=== PATIENT | male | born 1955 | race Caucasian/White ===

== ENCOUNTER 2023-03-25 17:21 | Inpatient (IN) | payer MEDICARE, BC, SELFPAY ==
[2023-03-25] VITALS (7 sets, daily range): BP systolic 134–167; BP diastolic 79–90; PULSE 56–82; RESP 12–21; TEMP 36.4–36.8; O2SAT 96–99; BMI 25.5; BMI 25.0
--- NOTE | 2023-03-25 18:41 | EX.ED.DYSGE1 ---
HPI <DEEPTI Ríos - Last Filed: 03/25/23 20:33> History of Present Illness Chief Complaint: Substance Abuse Narrative Narrative: Patient presenting requesting detox from alcohol. He reports that he drinks about a sixpack daily and his reports that he has been drinking for 45 years every day. He has tried to detox in the past by himself but was unsuccessful. He has never been to an inpatient detox center. He denies any history of withdrawal seizures. He denies any other substance use. PMH includes hypertension, CAD with stent placement, hyperlipidemia. He reports that his PCP did put him on disulfiram but he has had no success with that. PFSH <DEEPTI Ríos - Last Filed: 03/25/23 20:33> [facility] Medical History (Updated 03/25/23 @ 20:[address] Aldo Raines MD) CAD (coronary artery disease) GERD (gastroesophageal reflux disease) Hypercholesteremia Hypertension STEMI (ST elevation myocardial infarction) Home Medications aspirin 81 mg capsule 81 mg PO DAILY 03/25/23 [History Last Taken Unknown] atorvastatin 40 mg tablet 40 mg PO QHS 03/25/23 [History Last Taken Unknown] clopidogrel 75 mg tablet 75 mg PO DAILY 03/25/23 [History Last Taken Unknown] disulfiram 250 mg tablet 250 mg PO DAILY 03/25/23 [History Last Taken Unknown] escitalopram oxalate 5 mg tablet 5 mg PO QHS 03/25/23 [History Last Taken Unknown] folic acid 1 mg tablet 1 mg PO DAILY 03/25/23 [History Last Taken Unknown] losartan 25 mg tablet 50 mg PO DAILY 03/25/23 [History Last Taken Unknown] metoprolol tartrate 25 mg tablet 25 mg PO BID 03/25/23 [History Last Taken Unknown] multivitamin (Daily Multi-Vitamin tablet) 1 tab PO DAILY 03/25/23 [History Last Taken Unknown] nitroglycerin 0.4 mg sublingual tablet 0.4 mg sublingual Q5M PRN chest pain 03/25/23 [History Last Taken Unknown] omega-3 fatty acids-fish oil 300 mg-500 mg capsule (Fish Oil) 1 cap PO DAILY 03/25/23 [History Last Taken Unknown] omeprazole 40 mg capsule,delayed release 40 mg PO DAILY 03/25/23 [History Last Taken Unknown] Allergy/AdvReac Type Severity Reaction Status Date / Time No Known Allergies Allergy Verified 03/25/23 19:27 Family History (Updated 03/25/23 @ 20:[address] Aldo Raines MD) Other Heart disease Surgical History (Updated 03/25/23 @ 20:[address] Aldo Raines MD) H/O eye surgery History of appendectomy History of cataract surgery History of coronary artery stent placement Social History Smoking Status: Never smoker ROS <DEEPTI Ríos - Last Filed: 03/25/23 20:33> ROS ED Constitutional Constitutional ED: Denies chills or fever(s) Cardiovascular Cardiovascular: Denies chest pain Respiratory/Chest Respiratory/Chest: Denies cough or dyspnea Gastrointestinal Gastrointestinal: Denies abdominal pain, nausea or vomiting Musculoskeletal Musculoskeletal: Denies arthralgias or myalgias Neurologic Neurologic: Denies weakness EXAM <DEEPTI Ríos - Last Filed: 03/25/23 20:33> Physical Exam Const Vital Signs: 03/25/23 17:22 03/25/23 20:11 Temperature 97.5 F L 98.3 F Temperature Source Temporal Oral Pulse Rate 71 82 Respiratory Rate 16 12 Blood Pressure 167/90 H 143/84 H Blood Pressure Mean 115 103 Blood Pressure Source Monitor Blood Pressure Position Semi-Fowlers Blood Pressure Location Left Arm Pulse Ox 98 97 Oxygen Delivery Method Room Air Room Air Positive well nourished, well developed and no apparent distress General Appearance ED: well developed HEENT Reports normocephalic and head/scalp atraumatic Mouth ED: Yes moist mucous membranes normal Eyes PERRL and EOMs intact bilaterally Neck full ROM and supple Chest Wall inspection of chest normal Resp normal respiratory effort and clear to auscultation bilaterally Cardio regular rate and regular rhythm GI soft to palpation, non-tender, non-distended and no masses Back/Spine normal ROM and normal to inspection Extremity normal to inspection and full ROM Neuro oriented x3, CN's II-XII intact bilaterally, moves all extremities, no focal motor deficits and no sensory deficits noted Sensorium / Orientation: awake and alert Psych mental status grossly normal and thought process normal Skin no rashes or lesions noted and no wounds <Dr. Javy Leon DO - Last Filed: 03/25/23 22:00> Physical Exam Const Vital Signs: 03/25/23 17:22 03/25/23 20:11 Temperature 97.5 F L 98.3 F Temperature Source Temporal Oral Pulse Rate 71 82 Respiratory Rate 16 12 Blood Pressure 167/90 H 143/84 H Blood Pressure Mean 115 103 Blood Pressure Source Monitor Blood Pressure Position Semi-Fowlers Blood Pressure Location Left Arm Pulse Ox 98 97 Oxygen Delivery Method Room Air Room Air MDM <DEEPTI Ríos - Last Filed: 03/25/23 20:33> MDM MDM Narrative Medical decision making narrative: Patient presenting requesting alcohol detox, his last drink was yesterday evening, he does not feel that he is in withdrawal at this time. Vitals are unremarkable aside from being hypertensive. He is well-appearing and in no acute distress. Clearance labs will be obtained and I will speak with the hospitalist. He will be admitted in stable condition. Labs are unremarkable. Lab Data Attestation: I reviewed the patient's lab results. Labs: Laboratory Results - last 24 hr 03/25/23 03/25/23 19:25 19:36 WBC 7.3 RBC 4.27 L Hgb 12.8 L Hct 38.9 L MCV 91.1 MCH 30.0 MCHC 32.9 RDW Std Deviation 42.5 RDW Coeff of [place] 12.9 Plt Count 249 MPV 10.3 Immature Gran % (Auto) 0.300 Neut % (Auto) 65.2 Lymph % (Auto) 24.4 [place] % (Auto) 8.5 Eos % (Auto) 0.8 Baso % (Auto) 0.8 Absolute Neuts (auto) 4.7 Absolute Lymphs (auto) 1.77 Nucleated RBC % 0 Sodium 138 Potassium 4.0 Chloride 106 Carbon Dioxide 25.0 Anion Gap 7 BUN 10 Creatinine 1.03 Estim Creat Clear Calc 67.33 Est GFR (MDRD) Af Amer 92 Est GFR (MDRD) Non-Af 76 BUN/Creatinine Ratio 9.7 L Glucose 86 Calcium 8.9 Total Bilirubin 0.80 AST 26 ALT 25 Alkaline Phosphatase 91 Total Protein 7.2 Albumin 3.5 Globulin 3.7 Albumin/Globulin Ratio 0.9 Urine Opiates Screen NEGATIVE Urine Methadone Screen NEGATIVE Ur Barbiturates Screen NEGATIVE Ur Phencyclidine Scrn NEGATIVE Ur Amphetamines Screen NEGATIVE MDMA (Ecstasy) Screen NEGATIVE U Benzodiazepines Scrn NEGATIVE Urine Cocaine Screen NEGATIVE U Cannabinoids Screen NEGATIVE Ur Drug Screen Comment Ethyl Alcohol < 3.0 <Dr. Javy Leon, DO - Last Filed: 03/25/23 22:00> [facility] Lab Data Labs: Laboratory Results - last 24 hr 03/25/23 03/25/23 19:25 19:36 WBC 7.3 RBC 4.27 L Hgb 12.8 L Hct 38.9 L MCV 91.1 MCH 30.0 MCHC 32.9 RDW Std Deviation 42.5 RDW Coeff of [place] 12.9 Plt Count 249 MPV 10.3 Immature Gran % (Auto) 0.300 Neut % (Auto) 65.2 Lymph % (Auto) 24.4 [place] % (Auto) 8.5 Eos % (Auto) 0.8 Baso % (Auto) 0.8 Absolute Neuts (auto) 4.7 Absolute Lymphs (auto) 1.77 Nucleated RBC % 0 Sodium 138 Potassium 4.0 Chloride 106 Carbon Dioxide 25.0 Anion Gap 7 BUN 10 Creatinine 1.03 Estim Creat Clear Calc 67.33 Est GFR (MDRD) Af Amer 92 Est GFR (MDRD) Non-Af 76 BUN/Creatinine Ratio 9.7 L Glucose 86 Calcium 8.9 Total Bilirubin 0.80 AST 26 ALT 25 Alkaline Phosphatase 91 Total Protein 7.2 Albumin 3.5 Globulin 3.7 Albumin/Globulin Ratio 0.9 Urine Opiates Screen NEGATIVE Urine Methadone Screen NEGATIVE Ur Barbiturates Screen NEGATIVE Ur Phencyclidine Scrn NEGATIVE Ur Amphetamines Screen NEGATIVE MDMA (Ecstasy) Screen NEGATIVE U Benzodiazepines Scrn NEGATIVE Urine Cocaine Screen NEGATIVE U Cannabinoids Screen NEGATIVE Ur Drug Screen Comment Ethyl Alcohol < 3.0 Treatment and Re-Evaluation :: ED attending note: I evaluated the patient in conjunction with the BRIAN. I agree with his/her statements and above findings. I have personally performed a face to face assessment of the patient and have reviewed the BRIAN Note. I performed a substantive portion of the visit including all aspects of the following. I personally saw the patient performed chart review, physical exam, reviewed labs, imaging (if obtained), and formulated a treatment and management plan. Brief history: 67-year-old male here with alcohol abuse and request for alcohol detox. States he drinks approximate 6 beers a day. Last drink was approximate 24 hours ago. Denies any other drug use. Exam: Nursing triage notes reviewed, Vital signs reviewed Constitutional: please see mdm HENT: MMM, bruising noted to right jaw. Eyes: Pupils equal round and reactive to light, Extraocular muscles intact Neck: No stridor, no JVD, full neck ROM Lungs: Clear to auscultation, No wheezing or rales. No increased work of breathing, no conversational dyspnea, no accessory muscle use, no nasal flaring. No respiratory distress noted Heart: Regular rate and rhythm, No murmurs, No rubs and No gallops, 2+ distal pulses (radial, femoral, posterior tibial) in all extremities Abdomen: Soft, there is no tenderness, rigidity, rebound or guarding, no obvious peritoneal signs, no palpable pulsatile abdominal masses, no auscultated abdominal bruit : No CVAT Extremities: No edema Neuro: No focal neurological deficits, cranial nerves II through XII intact, 5/5 strength in all extremities. Intact sensation to light touch in all extremities, 2+ reflexes bilateral patella dens. Normal gait. No ataxia. Skin: No rash or lesions noted MDM/plan: Chief Complaint: Alcohol abuse External records reviewed: No recent ED visits or hospitalizations Factors affecting care: History of alcohol abuse Social determinants of health: Alcohol abuse History obtained from others: The patient's MDM narrative: Patient was hemodynamically stable, afebrile, nontoxic-appearing. Exam without focal abnormality. We will obtain medical clearance labs and attempt admit through our detox process. Consults: Internal medicine Shared decision making: I will have a discussion with the patient and or visitors regarding risk/benefits of further testing or admission. They will be made aware of of the risk/benefits inherent in this decision they will be given the opportunity to voice understanding. Discharge Plan Dx/Rx/DC Orders Clinical Impression: Desire for detoxification, Alcohol abuse Disposition Disposition: Acute Care [facility]
[2023-03-25 19:41] LABS: Absolute Lymphocyte Count 1.77 X10^3/uL (0.83-4.51); Absolute Neutrophil Count 4.7 X10^3/uL (2.0-7.7); Basophil# 0.06 X10^3/uL; Basophil% 0.8 % (0-1); Eosinophil# 0.06 X10^3/uL; Eosinophils% 0.8 % (0-5); Hematocrit 38.9 % (40-54); Hemoglobin 12.8 g/dL (13.0-16.5); Lymphocyte # 1.77 X10^3/ul (0.83-4.51); Lymphocyte % 24.4 % (19-41); Mean Corp Hgb Conc 32.9 g/dL (32-36); Mean Corpuscular Volume 91.1 fL (80-94); Mean Platelet Vol. 10.3 fl (6.2-12.0); Monocyte# 0.62 X10^3/uL; Monocyte% 8.5 % (0-10); NRBC Flagged by Analyzer 0 % (0-5); Neutrophil # 4.73 X10^3/uL (2.7-7.7); Neutrophil % 65.2 % (47-70); Platelet Count 249 K/mm3 (150-450); RBC Distribution Width CV 12.9 % (11.6-14.6); RBC Distribution Width SD 42.5 fl (35.1-43.9); Red Blood Count 4.27 M/mm3 (4.6-6.2); White Blood Count 7.3 K/mm3 (4.4-11.0)
[2023-03-25 19:47] LABS: Alcohol, Blood (Medical)-Serum < 3.0 mg/dL
[2023-03-25 19:51] LABS: ALB/GLOB Ratio 0.9 RATIO (0.9-2.4); AST(SGOT) 26 U/L (15-37); Alanine Aminotransfer ALT/SGPT 25 U/L (16-61); Albumin, Serum 3.5 g/dL (3.2-5.0); Alkaline Phosphatase 91 U/L (45-117); Anion Gap 7 (5-15); BUN 10 mg/dL (7-18); BUN/Creat Ratio 9.7 RATIO (10-20); Calcium,Total 8.9 mg/dL (8.5-10.1); Chloride 106 mmol/L (98-107); Creatinine, Serum 1.03 mg/dL (0.70-1.30); EST Glomerular Filtration Rate 76 mL/min (>60); Est Glom Filt Rate - Afr Amer 92 mL/min (>60); Estimated Creatinine Clearance 67.33 ml/min; Globulin 3.7 g/dL (2.2-4.2); Glucose 86 mg/dL (74-106); Protein, Total 7.2 g/dL (6.4-8.2); Sodium Level 138 mmol/L (136-145)
[2023-03-25 20:07] LABS: Amphetamine Urine VISTA NEGATIVE (<1000 ng/mL); Barbiturate Urine VISTA NEGATIVE (< 200 ng/mL); Benzodiazepine Urine VISTA NEGATIVE (< 200 ng/mL); Cocaine Urine VISTA NEGATIVE (< 300 ng/mL); Ecstacy Urine VISTA NEGATIVE (< 500 ng/mL); Methadone Urine VISTA NEGATIVE (< 300 ng/mL); PCP Urine VISTA NEGATIVE (< 25 ng/mL); THC Urine VISTA NEGATIVE (< 50 ng/mL); Vista UDS pH Range 5
--- NOTE | 2023-03-25 20:10 | ED.RN ---
PT HAS BRUISING TO RIGHT JAW. PT STATES A BRANCH HIT ME WHEN I WAS WORKING IN THE YARD. PT ALSO COMPLAINS OF MINOR NECK PAIN/SORENESS.
--- NOTE | 2023-03-25 20:35 | HP.PCM.HOS_ITS ---
HPI - General General Date of Admission: 03/25/23 Date of Service: 03/25/23 Chief Complaint: Desire for alcohol detox HPI Narrative LISBET BLANCO, is a 67 M significant history of depression; CAD status post stent in LAD in January 2022; and alcoholism who presents emergency department for help with alcohol detox . Of note patient has been drinking for about 45 years. He report that he drinks 4-6 bottles of 8 ounce; 16 ounces or 25 pounds beer. Last time he drank was a day before presentation. He denies any withdrawal symptoms. He reports that about 2 weeks ago ago his PCP started him on a medication for alcohol withdrawal. He reported that medications is not helping him. [facility] Medical History (Updated 03/26/23 @ 01:[address] Aldo Raines MD) CAD (coronary artery disease) GERD (gastroesophageal reflux disease) Hypercholesteremia Hypertension STEMI (ST elevation myocardial infarction) Home Medications aspirin 81 mg capsule 81 mg PO DAILY blood thinner 03/25/23 [History Last Taken 03/24/23] atorvastatin 40 mg tablet 40 mg PO QHS hld 03/25/23 [History Last Taken 03/24/23] clopidogrel 75 mg tablet 75 mg PO DAILY blood thinner 03/25/23 [History Last Taken 03/25/23] disulfiram 250 mg tablet 250 mg PO DAILY see 03/25/23 [History Last Taken 03/25/23] docsshexaenoic acid 120 - 180 mg PO DAILY see 03/25/23 [History Last Taken 03/25/23] escitalopram oxalate 5 mg tablet 5 mg PO QHS depression 03/25/23 [History Last Taken 03/24/23] folic acid 1 mg tablet 1 mg PO DAILY vitamin 03/25/23 [History Last Taken 0 03/24/23] losartan 25 mg tablet 50 mg PO DAILY bp 03/25/23 [History Last Taken 03/25/23] metoprolol tartrate 25 mg tablet 25 mg PO BID heart 03/25/23 [History Last Taken 03/25/23] multivitamin (Daily Multi-Vitamin tablet) 1 tab PO DAILY vitamin 03/25/23 [History Last Taken 03/25/23] nitroglycerin 0.4 mg sublingual tablet 0.4 mg sublingual Q5M PRN chest pain 03/25/23 [History Last Taken Unknown] omega-3 fatty acids-fish oil 300 mg-500 mg capsule (Fish Oil) 1 cap PO DAILY vitamin 03/25/23 [History Last Taken 03/25/23] omeprazole 40 mg capsule,delayed release 40 mg PO DAILY stomach 03/25/23 [Histo ry Last Taken 03/25/23] Allergy/AdvReac Type Severity Reaction Status Date / Time No Known Allergies Allergy Verified 03/25/23 19:27 Family History Other Heart disease Surgical History H/O eye surgery History of appendectomy History of cataract surgery History of coronary artery stent placement Social History Smoking Status: Never smoker ROS ROS Narrative Pertinent positives and pertinent negatives as noted in HPI. All other systems were reviewed and are negative Vital Signs Vital Signs Vital Signs: 03/25/23 17:22 03/25/23 20:11 Temperature 97.5 F L 98.3 F Temperature Source Temporal Oral Pulse Rate 71 82 Respiratory Rate 16 12 Blood Pressure 167/90 H 143/84 H Blood Pressure Mean 115 103 Blood Pressure Source Monitor Blood Pressure Position Semi-Fowlers Blood Pressure Location Left Arm Pulse Ox 98 97 Oxygen Delivery Method Room Air Room Air Weight Weight: 76.204 kg Body Mass Index (BMI) 25.5 Physical Exam Narrative Physical exam: General: Well-nourished, well-developed. Head: Normocephalic, atraumatic, no tenderness Eyes: Vision is grossly intact. EOMI ENT, no trauma, moist mucous membranes, no rhinorrhea Neck: Nontender, No thyromegaly. CVS: Regular rate and rhythm. S1-S2 present. No murmur, gallop or rub. Respiratory : clear to auscultation bilaterally, chest wall nontender Abdomen: Soft, nontender, nondistended, normal bowel sounds, no masses : Deferred Back: Nontender, no CVA tenderness. Extremities: Nontender full range of motion, no trauma Skin: Normal color, no trauma, abrasions Neuro: Alert, oriented, cranial nerves II through XII grossly intact. Psychiatry: Normal mood. Normal affect. Not depressed. Not anxious. Results Lab / Micro Data 03/25/23 19:25 03/25/23 19:25 Labs: Laboratory Results - last 24 hr 03/25/23 19:25: WBC 7.3, RBC 4.27 L, Hgb 12.8 L, Hct 38.9 L, MCV 91.1, MCH 30.0, MCHC 32.9, RDW Std Deviation 42.5, RDW Coeff of [place]innette 12.9, Plt Count 249, MPV 10.3, Immature Gran % (Auto) 0.300, Neut % (Auto) 65.2, Lymph % (Auto) 24.4, [place] % (Auto) 8.5, Eos % (Auto) 0.8, Baso % (Auto) 0.8, Absolute Neuts (auto) 4.7, Absolute Lymphs (auto) 1.77, Nucleated RBC % 0, Sodium 138, Potassium 4.0, Chloride 106, Carbon Dioxide 25.0, Anion Gap 7, BUN 10, Creatinine 1.03, Estim Creat Clear Calc 67.33, Est GFR (MDRD) Af Amer 92, Est GFR (MDRD) Non-Af 76, BUN/Creatinine Ratio 9.7 L, Glucose 86, Calcium 8.9, Total Bilirubin 0.80, AST 26, ALT 25, Alkaline Phosphatase 91, Total Protein 7.2, Albumin 3.5, Globulin 3.7, Albumin/Globulin Ratio 0.9, Ethyl Alcohol < 3.0 03/25/23 19:36: Urine Opiates Screen NEGATIVE, Urine Methadone Screen NEGATIVE, Ur Barbiturates Screen NEGATIVE, Ur Phencyclidine Scrn NEGATIVE, Ur Amphetamines Screen NEGATIVE, MDMA (Ecstasy) Screen NEGATIVE, U Benzodiazepines Scrn NEGATIVE, Urine Cocaine Screen NEGATIVE, U Cannabinoids Screen NEGATIVE, Ur Drug Screen Comment Assessment & Plan Assessment/Plan (1) Alcohol abuse: (2) Hypertension: QUALIFIERS: Hypertension type: primary hypertension Qualified Code(s): I10 - Essential (primary) hypertension (3) Desire for detoxification: PLAN: Plan Alcohol dependence and desire for detoxification Patient be started on phenobarbital and other adjunctive medications: Gabapentin as needed; dicyclomine as needed; Vistaril as needed; Imodium as needed; trazodone as needed; Zofran as needed; scheduled thiamine; and schedule folic acid. Hold home disulfiram Monitor CIWA score CAD status post stent Stable Dual antiplatelet therapy continued. Metoprolol and losartan continued. Hypertension Blood pressure is not within goal Home blood pressure medication continued. A Trend blood pressure and adjust blood pressure medications. DVT prophylaxis Subcutaneous Lovenox ordered Time spent in the patient's overall evaluation,decision-making process, review of diagnostic data, adjustment of management, discussion with other providers, nursing nursing and ancillary staff involved in patient's care documentation, 60 minutes. Charges/Coding Visit Charges Inpatient E&M: 16505 Init Hosp L3
--- NOTE | 2023-03-25 21:07 | CM.ED ---
Social Work SW introduced self and role to patient. Pt reports he doesn't know what detox is. SW answered questions as able. Pt reports his last drink was yesterday evening. Pt reports drinking 4-6 cans of beer a day on average. Pt denies ever being in counseling or substance abuse treatment. Pt denies any further SW needs at this time. Naina Santana COPPER FLOTATION OPERATOR, HOME WEATHERIZING WORKER
[2023-03-25] MEDS: traZODone 100 MG Tablet PO (22:54)
[2023-03-25] MEDS: Atorvastatin Calcium 40 MG Tablet PO (22:54)
[2023-03-25] MEDS: Phenobarbital 32.4 MG Tablet 64.8 MG PO (22:55)
[2023-03-25] MEDS: Escitalopram Oxalate 10 MG Tablet 5 MG PO (22:55)
[2023-03-26] VITALS (8 sets, daily range): BP systolic 120–136; BP diastolic 73–88; PULSE 71–92; RESP 16–18; TEMP 36.6–37.1; O2SAT 94–98
[2023-03-26] MEDS: Phenobarbital 32.4 MG Tablet 64.8 MG PO ×6 (02:23→22:21)
--- NOTE | 2023-03-26 07:39 | PN.HOSP_ITS ---
Reason for Visit Reason for Visit: Diagnoses Alcohol abuse, uncomplicated (03/25/23) Essential (primary) hypertension (03/25/23) Subjective Subjective Patient started on disulfiram a week ago but was significant for vomiting. Was having mucus otherwise was able to tolerate alcohol. Has never been on it prior to this past week or so. Objective Data Objective Data Vital Signs: Vital Signs Temp Pulse Resp BP Pulse Ox O2 Del Method 36.8 C 71 16 133/73 H 94 Room Air 03/26/23 02:27 03/26/23 02:27 03/26/23 02:27 03/26/23 02:27 03/26/23 02:27 03/26/23 02:27 Oxygen Delivery Method Room Air Weight: 74.6 kg Body Mass Index (BMI) 25.0 Intake & Output: Intake and Output for Last 24 Hours 03/24/23 03/25/23 03/26/23 23:59 23:59 23:59 Intake Total 240 / 240 240 / 240 Balance 240 / 240 240 / 240 Lab / Micro Data 03/25/23 19:25 03/25/23 19:25 Labs: Laboratory Results - last 24 hr 03/25/23 19:25: WBC 7.3, RBC 4.27 L, Hgb 12.8 L, Hct 38.9 L, MCV 91.1, MCH 30.0, MCHC 32.9, RDW Std Deviation 42.5, RDW Coeff of [place]ette 12.9, Plt Count 249, MPV 10.3, Immature Gran % (Auto) 0.300, Neut % (Auto) 65.2, Lymph % (Auto) 24.4, [place] % (Auto) 8.5, Eos % (Auto) 0.8, Baso % (Auto) 0.8, Absolute Neuts (auto) 4.7, Absolute Lymphs (auto) 1.77, Nucleated RBC % 0, Sodium 138, Potassium 4.0, Chloride 106, Carbon Dioxide 25.0, Anion Gap 7, BUN 10, Creatinine 1.03, Estim Creat Clear Calc 67.33, Est GFR (MDRD) Af Amer 92, Est GFR (MDRD) Non-Af 76, BUN/Creatinine Ratio 9.7 L, Glucose 86, Calcium 8.9, Total Bilirubin 0.80, AST 26, ALT 25, Alkaline Phosphatase 91, Total Protein 7.2, Albumin 3.5, Globulin 3.7, Albumin/Globulin Ratio 0.9, Ethyl Alcohol < 3.0 03/25/23 19:36: Urine Opiates Screen NEGATIVE, Urine Methadone Screen NEGATIVE, Ur Barbiturates Screen NEGATIVE, Ur Phencyclidine Scrn NEGATIVE, Ur Amphetamines Screen NEGATIVE, MDMA (Ecstasy) Screen NEGATIVE, U Benzodiazepines Scrn NEGATIVE, Urine Cocaine Screen NEGATIVE, U Cannabinoids Screen NEGATIVE, Ur Drug Screen Comment Physical Exam Const alert and no apparent distress GI normal to inspection, nondistended, normoactive bowel sounds Extremity normal to inspection and full ROM Assessment & Plan Assessment/Plan (1) Alcohol abuse: PLAN: Alcohol dependence and desire for detoxification Patient be started on phenobarbital and other adjunctive medications: Gabapentin as needed; dicyclomine as needed; Vistaril as needed; Imodium as needed; trazodone as needed; Zofran as needed; scheduled thiamine; and schedule folic acid. Hold home disulfiram Monitor CIWA score Patient with benign disulfiram for about a week. Patient to continue with. Patient will benefit from Vivtrol upon discharge. Pt to follow up with [facility] upon discharge. Please monitor the patient overnight insignificance remained stable or improved, plan to be discharged, give him Vivitrol and then have him follow-up PLAN: Plan Chronic conditions: * CAD status post stent: Dual antiplatelet therapy continued. Metoprolol and losartan continued. * Hypertension: continue losartan, metoprolol VTE prophylaxis: LMWH Charges/Coding Visit Charges Inpatient E&M: 69486 [facility] Hosp L1
[2023-03-26] MEDS: Aspirin 81 MG TAB.CHEW PO (09:17)
[2023-03-26] MEDS: Thiamine Hydrochloride 100 MG Tablet PO (09:17)
[2023-03-26] MEDS: Losartan Potassium 50 MG Tablet PO (09:17)
[2023-03-26] MEDS: Pantoprazole Sodium 40 MG Tablet PO (09:17)
[2023-03-26] MEDS: Metoprolol Tartrate 25 MG Tablet PO ×2 (09:17→22:20)
[2023-03-26] MEDS: Multivitamins,Therapeutic Tablet 1 TABLET PO (09:17)
[2023-03-26] MEDS: Clopidogrel Bisulfate 75 MG Tablet PO (09:18)
[2023-03-26] MEDS: Enoxaparin 40 MG/0.4 ML Syringe SC (09:18)
[2023-03-26] MEDS: Folic Acid 1 MG Tablet PO (09:18)
--- NOTE | 2023-03-26 11:22 | ADDICTION ---
This senior technical writer met with PT to conduct ASAM, MSE, AUDIT assessments and to plan for d/c. PT A+Ox4 and participated actively. All assessments completed in PT's chart. PT plans to f/u with [facility] in [place] for follow-up assessment and counseling services. PT did not indicate a need for transportation post d/c from [facility].
--- NOTE | 2023-03-26 12:06 | ADDICTION ---
Addendum entered by Sanjana Dozier 03/26/23 12:09: Dr. Reese was informed of Vivitrol referral. Original Note: Pt has requested the Vivitrol shot. Pt completed assessment and is appropriate for his first injection through [facility]. PT plans to f/u with [facility] for outpatient treatment and Dr. Cannon, his PCP, for MAT services. Pt's will transport pt once discharged.
--- NOTE | 2023-03-26 12:10 | ADDICTION ---
Pt has requested the Vivitrol shot. Pt completed assessment and is appropriate for his first injection through [facility]. PT plans to f/u with [facility] for outpatient treatment and Dr. Cannon, his PCP, for MAT services. Pt's will transport pt once discharged. Attempted to call to inform her of the plan, left voicemail. Pt reported that will make appointments for [facility] and Dr. Cannon. Dr. Reese was informed of plan for Vivitrol.
[2023-03-26] MEDS: hydrOXYzine PAM 25 MG Capsule 50 MG PO ×2 (13:33→18:20)
[2023-03-26] MEDS: Gabapentin 300 MG Capsule PO (16:38)
[2023-03-26] MEDS: traZODone 100 MG Tablet PO (22:20)
[2023-03-26] MEDS: Escitalopram Oxalate 10 MG Tablet 5 MG PO (22:21)
[2023-03-26] MEDS: Atorvastatin Calcium 40 MG Tablet PO (22:21)
[2023-03-27 02:36] VITALS: BP 119/77; PULSE 63; RESP 18; TEMP 36.6; O2SAT 95
[2023-03-27] MEDS: Phenobarbital 32.4 MG Tablet 64.8 MG PO ×3 (02:40→10:52)
[2023-03-27 08:29] VITALS: BP 134/79; PULSE 80; RESP 16; TEMP 36.3; O2SAT 97
--- NOTE | 2023-03-27 08:34 | PCM.PN.HOSP ---
Reason for Visit Reason for Visit: Diagnoses Alcohol abuse, uncomplicated (03/25/23) Essential (primary) hypertension (03/25/23) Subjective Subjective Has been walking around w/o difficulty. Slightly off balance when he gets up. Objective Data Objective Data Vital Signs: Vital Signs Temp Pulse Resp BP Pulse Ox O2 Del Method 36.6 C 63 18 119/77 95 Room Air 03/27/23 02:36 03/27/23 02:36 03/27/23 02:36 03/27/23 02:36 03/27/23 02:36 03/27/23 02:36 Oxygen Delivery Method Room Air Weight: 74.6 kg Body Mass Index (BMI) 25.0 Intake & Output: Intake and Output for Last 24 Hours 03/25/23 03/26/23 03/27/23 23:59 23:59 23:59 Intake Total 240 / 240 240 / 240 Balance 240 / 240 240 / 240 Lab / Micro Data 03/25/23 19:25 03/25/23 19:25 Physical Exam Const alert and no apparent distress HEENT head/scalp atraumatic and moist oral mucous membranes Psych affect normal Assessment & Plan Assessment/Plan (1) Alcohol abuse: PLAN: Alcohol dependence and desire for detoxification Patient be started on phenobarbital and other adjunctive medications: Gabapentin as needed; dicyclomine as needed; Vistaril as needed; Imodium as needed; trazodone as needed; Zofran as needed; scheduled thiamine; and schedule folic acid. Hold home disulfiram Monitor CIWA score Patient with benign disulfiram for about a week. Patient to continue with. Patient will benefit from Vivtrol upon discharge. Pt to follow up with [facility] upon discharge. Please monitor the patient overnight insignificance remained stable or improved, plan to be discharged, give him Vivitrol and then have him follow-up Will give dose of Vivitrol. Patient will follow up with [facility] for ongoing addiction treatment upon discharge. PLAN: Plan Chronic conditions: CAD status post stent: Dual antiplatelet therapy continued. Metoprolol and losartan continued. Hypertension: continue losartan, metoprolol
[2023-03-27 08:51] VITALS: BP 134/79; PULSE 74; RESP 18; TEMP 36.3; O2SAT 95
[2023-03-27] MEDS: Folic Acid 1 MG Tablet PO (08:59)
[2023-03-27] MEDS: Aspirin 81 MG TAB.CHEW PO (08:59)
[2023-03-27 09:00] VITALS: PULSE 74
[2023-03-27] MEDS: Multivitamins,Therapeutic Tablet 1 TABLET PO (09:00)
[2023-03-27] MEDS: Clopidogrel Bisulfate 75 MG Tablet PO (09:00)
[2023-03-27] MEDS: Pantoprazole Sodium 40 MG Tablet PO (09:00)
[2023-03-27] MEDS: Metoprolol Tartrate 25 MG Tablet PO (09:00)
[2023-03-27] MEDS: Thiamine Hydrochloride 100 MG Tablet PO (09:00)
[2023-03-27] MEDS: Losartan Potassium 50 MG Tablet PO (09:00)
[2023-03-27] MEDS: Enoxaparin 40 MG/0.4 ML Syringe SC (09:00)
[2023-03-27 09:25] VITALS: O2SAT 95
--- NOTE | 2023-03-27 09:32 | ADDICTION ---
TW met with PT to discuss d/c and see if there were any changes. PT is interested in following up with outpatient at [facility]. TW called to ask if appts had be scheduled. stated she wanted pt to go to rehab. Pt is not interested in residential tx at this time and wants to try outpatient tx first.
--- NOTE | 2023-03-27 11:33 | PCM.DC.SUM ---
Providers Date of Admission: 03/25/23 Primary Care Physician: VALENTINA BELTRÁN MD Reason For Visit: DESIRE FOR ALCOHOL DETOXIFICATION Diagnosis Discharge Diagnosis (1) Alcohol abuse: Status: Acute Code(s): F10.10 - Alcohol abuse, uncomplicated Plan: Alcohol dependence and desire for detoxification Patient be started on phenobarbital and other adjunctive medications: Gabapentin as needed; dicyclomine as needed; Vistaril as needed; Imodium as needed; trazodone as needed; Zofran as needed; scheduled thiamine; and schedule folic acid. Hold home disulfiram Monitor CIWA score Patient with benign disulfiram for about a week. Patient to continue with. Patient will benefit from Vivtrol upon discharge. Pt to follow up with [facility] upon discharge. Please monitor the patient overnight insignificance remained stable or improved, plan to be discharged, give him Vivitrol and then have him follow-up Will give dose of Vivitrol. Patient will follow up with [facility] for ongoing addiction treatment upon discharge. Plan Chronic conditions: CAD status post stent: Dual antiplatelet therapy continued. Metoprolol and losartan continued. Hypertension: continue losartan, metoprolol Medications at Discharge Home Medications aspirin 81 mg capsule 81 mg PO DAILY blood thinner 03/25/23 atorvastatin 40 mg tablet 40 mg PO QHS hld 03/25/23 clopidogrel 75 mg tablet 75 mg PO DAILY blood thinner 03/25/23 escitalopram oxalate 5 mg tablet 5 mg PO QHS depression 03/25/23 folic acid 1 mg tablet 1 mg PO DAILY vitamin 03/25/23 losartan 25 mg tablet 50 mg PO DAILY bp 03/25/23 metoprolol tartrate 25 mg tablet 25 mg PO BID heart 03/25/23 multivitamin (Daily Multi-Vitamin tablet) 1 tab PO DAILY vitamin 03/25/23 nitroglycerin 0.4 mg sublingual tablet 0.4 mg sublingual Q5M PRN chest pain 03/25/23 omega-3 fatty acids-fish oil 300 mg-500 mg capsule (Fish Oil) 1 cap PO DAILY vitamin 03/25/23 omeprazole 40 mg capsule,delayed release 40 mg PO DAILY stomach 03/25/23 multivitamin 1 tab PO DAILY #30 tabs 03/27/23 Hospital Course Operations None Procedures None Summary of Care Provided Minutes Spent on Discharge: 35 Weight / BMI Weight Weight: 74.6 kg Body Mass Index (BMI) 25.0 ABG / Lab / Microbiology Data 03/25/23 19:25 03/25/23 19:25 D/C Instructions Discharge Diet: No restrictions Meaningful Use Info Meaningful Use Diagnoses (Choose all that apply): None applicable Discharge Plan Admission Admit Date/Time: 03/25/23 20:29 Primary Reason for Your Visit: alcohol withdrawal. Attending Provider: Mart Reese Primary Care Provider: VALENTINA BELTRÁN Consulting Providers: Aldo Raines Instructions Additional Instructions / Restrictions: You were admitted with acute alcohol withdrawal. You received a dose of Vivitrol to help with your alcoholism. Please, follow up with [facility] for ongoing addiction treatment. Stop taking your disulfiram (Antabuse). Discharge Orders/Prescriptions Prescriptions: New multivitamin Tablet 1 tab PO DAILY Qty: 30 0RF Continued multivitamin [Daily Multi-Vitamin] Tablet 1 tab PO DAILY aspirin 81 mg capsule 81 mg PO DAILY Fish Oil 300-500 mg capsule 1 cap PO DAILY omeprazole 40 mg capsule,delayed release(DR/EC) 40 mg PO DAILY metoprolol tartrate 25 mg tablet 25 mg PO BID atorvastatin 40 mg tablet 40 mg PO QHS losartan 25 mg tablet 50 mg PO DAILY Patient Comments: TAKE 1 TABLET BY MOUTH ONCE DAILY nitroglycerin 0.4 mg tablet, sublingual 0.4 mg sublingual Q5M PRN (Reason: chest pain) Patient Comments: DISSOLVE ONE TABLET UNDER THE TONGUE EVERY 5 MINUTES NEEDED FOR CHEST PAIN clopidogrel 75 mg tablet 75 mg PO DAILY escitalopram oxalate 5 mg tablet 5 mg PO QHS folic acid 1 mg tablet 1 mg PO DAILY Discontinued disulfiram 250 mg tablet 250 mg PO DAILY docsshexaenoic acid 120 - 180 mg PO DAILY Referrals / Follow Up: VALENTINA BELTRÁN MD [Primary Care Provider] - [facility] Doctor,Out of [Non-Staff] - Disposition Disposition (needs filled in before D/C Order can be placed): Home, Self Care Charges/Coding Visit Charges Inpatient E&M: 21693 Disch Hosp >30min
--- NOTE | 2023-03-27 11:50 | PHA.DC.MR.R ---
Pharmacy [place] Med Reconciliation Pharmacy Service has performed discharge medication reconciliation for this patient. The patient's discharge medication list was reviewed for discrepancies and discrepancies were resolved. Medications at Discharge Home Medications aspirin 81 mg capsule 81 mg PO DAILY blood thinner 03/25/23 atorvastatin 40 mg tablet 40 mg PO QHS hld 03/25/23 clopidogrel 75 mg tablet 75 mg PO DAILY blood thinner 03/25/23 escitalopram oxalate 5 mg tablet 5 mg PO QHS depression 03/25/23 folic acid 1 mg tablet 1 mg PO DAILY vitamin 03/25/23 losartan 25 mg tablet 50 mg PO DAILY bp 03/25/23 metoprolol tartrate 25 mg tablet 25 mg PO BID heart 03/25/23 multivitamin (Daily Multi-Vitamin tablet) 1 tab PO DAILY vitamin 03/25/23 nitroglycerin 0.4 mg sublingual tablet 0.4 mg sublingual Q5M PRN chest pain 03/25/23 omega-3 fatty acids-fish oil 300 mg-500 mg capsule (Fish Oil) 1 cap PO DAILY vitamin 03/25/23 omeprazole 40 mg capsule,delayed release 40 mg PO DAILY stomach 03/25/23 multivitamin 1 tab PO DAILY #30 tabs 03/27/23
[2023-03-27] MEDS: Naltrexone Microspheres 380 MG SYRINGE IM (15:51)
[2023-03-27] MEDS: Vivitrol ID Card 1 EACH MC (15:52)
[2023-03-27] MEDS: Vivitrol Administration Needles 1 EACH MC (15:52)
[2023-03-27 16:20] VITALS: BP 144/70; PULSE 70; RESP 18; TEMP 36.8; O2SAT 98
== END 2023-03-27 16:23 | disposition home or self-care (01) | DRG 897 ==
LOC: ED 20:33 → MS3 21:24
PROVIDERS: Physician Assistant; Admitting Provider Hospitalist; Emergency Provider Emergency Medicine; PCP Family Medicine
DX: F10.239 Alcohol dependence with withdrawal, unspecified (principal); E78.00 Pure hypercholesterolemia, unspecified; I10 Essential (primary) hypertension; I25.10 Atherosclerotic heart disease of native coronary artery without angina pectoris; I25.2 Old myocardial infarction; K21.9 Gastro-esophageal reflux disease without esophagitis; Z95.5 Presence of coronary angioplasty implant and graft; Z79.82 Long term (current) use of aspirin; Z79.899 Other long term (current) drug therapy
CPT/HCPCS: 80053; 80307; 82077; 85025; 99283; A4216